=== PATIENT | female | born 1950 | race Caucasian/White ===

== ENCOUNTER 2017-07-22 09:27 | Day surgery (SDC) | payer BC, MEDICARE ==
[~2017-07-22 09:27] MED LIST: Lactated Ringers 1,000 ML IV SCH; Midazolam 1 MG/ML 2 ML SDV ONE; Propofol 200 MG/20 ML SDV ONE; fentaNYL 100 MCG/2 ML SDV ONE
--- NOTE | 2017-07-22 10:08 | PCM.PREANE ---
Preanesthetic Assessment - Anesthesia/Transfusion/Family Hx Anesthesia History: Prior Anesthesia Without Reaction Other Type of Anesthesia Reaction Comment: REports with majory surgeries, slow to awaken Family History of Anesthesia Reaction: No Transfusion History: No Prior Transfusion(s) Intubation History: Unknown - Review of Systems General: No Symptoms Pulmonary: No Symptoms Cardiovascular: No Symptoms Gastrointestinal: Abdominal Pain, Diarrhea Neurological: No Symptoms Other: Reports: None - Physical Assessment O2 Sat by Pulse Oximetry: 96 Respiratory Rate: 16 Vital Signs: Last Vital Signs Temp 36.2 C 07/22/17 10:01 Pulse 89 07/22/17 10:01 Resp 16 07/22/17 10:01 BP 116/73 07/22/17 10:01 Pulse Ox 96 07/22/17 10:01 Height: 1.6 m Weight: 80.739 kg ASA Class: 2 Mental Status: Alert & Oriented x3 Airway Class: Mallampati = 2 Dentition: Reports: Normal Dentition, Partial (upper) Thyro-Mental Finger Breadths: 3 Mouth Opening Finger Breadths: 3 ROM/Head Extension: Full Lungs: Clear to Auscultation, Normal Respiratory Effort Cardiovascular: Regular Rate, Regular Rhythm - Allergies Allergies/Adverse Reactions: Allergies Allergy/AdvReac Type Severity Reaction Status Date / Time Penicillins Allergy Rash Verified 08/27/15 17:05 - Blood Blood Available: No - Anesthesia Plan Pre-Op Medication Ordered: None - Acknowledgements Anesthesia Type Planned: MAC Pt an Appropriate Candidate for the Planned Anesthesia: Yes Alternatives and Risks of Anesthesia Discussed w Pt/Guardian: Yes Pt/Guardian Understands and Agrees with Anesthesia Plan: Yes PreAnesthesia Questionnaire - Past Health History Medical/Surgical History: Denies Medical/Surgical History HEENT History: Reports: Other (See Below) Other HEENT History: wears glasses, top partial Cardiovascular History: Reports: High Cholesterol, Hypertension Respiratory History: Reports: Other (See Below) Other Respiratory History: 35 yr history of smoking Gastrointestinal History: Reports: Colon Polyp Genitourinary History: Reports: Renal Calculus AS400 CONSULTANT History: Reports: Musculoskeletal History: Reports: Fracture Other Musculoskeletal History: hx: fracturing Right Wrist Neurological History: Reports: None Psychiatric History: Reports: None Endocrine/Metabolic History: Reports: Diabetes, Type II (glucose 192 preop, last A1C 6.9), Obesity/BMI 30+, Other (See Below) (unintentional weight loss) Hematologic History: Reports: None Immunologic History: Reports: None Oncologic (Cancer) History: Reports: None Dermatologic History: Reports: None - Past Surgical History Head Surgeries/Procedures: Reports: None HEENT Surgical History: Reports: Tonsillectomy GI Surgical History: Reports: Cholecystectomy, Colonoscopy ('16 with polyp) Female Surgical History: Reports: Hysterectomy, Tubal Ligation Neurological Surgical History: Reports: Other (See Below) Musculoskeletal Surgical History: Reports: Carpal Tunnel - SUBSTANCE USE Smoking Status *Q: Former Smoker (quit 01/05) Tobacco Use Within Last Twelve Months: Cigarettes Other Tobacco Use Within Last Twelve Months: 30 yr history smoking, current use 2 pack/week Recreational Drug Use History: No - HOME MEDS Home Medications: Home Meds Aspirin [Ecotrin] 1 tab PO DAILY 08/27/15 [History] Cyanocobalamin/FA/Pyridoxine [Folic Acid-Vit B6-Vit B12] 1 tab PO DAILY [History] Ezetimibe [Zetia] 1 tab PO DAILY 08/27/15 [History] Fish Oil/[place]-3 Fatty Acids [Fish Oil 1,000 MG] 1 cap PO DAILY 08/27/15 [ History] Glimepiride 0.5 tab PO BEDTIME 08/27/15 [History] Multivitamin [Multi-Vitamin Daily] 1 tab PO DAILY 08/27/15 [History] Ramipril 1 cap PO DAILY 08/27/15 [History] metFORMIN HCl [Metformin HCl] 2 tab PO BIDMEALS 08/27/15 [History] Chlorthalidone 0.5 tab PO DAILY 07/20/17 [History] - CURRENT (IN HOUSE) MEDS Current Meds: Current Medications Lactated Ringer's (Ringers, Lactated) 1,000 mls @ 125 mls/hr IV ASDIRECTED [place] Last Admin: 07/22/17 10:00 Dose: 125 mls/hr Discontinued Medications Fentanyl (Sublimaze) Confirm Administered Dose 100 mcg .ROUTE .STK-MED ONE Stop: 07/22/17 07:08 Lidocaine HCl (Xylocaine-Mpf 1%) Confirm Administered Dose 5 ml .ROUTE .STK-MED ONE Stop: 07/22/17 07:09 Midazolam HCl (Versed 1 Mg/Ml) Confirm Administered Dose 2 mg .ROUTE .STK-MED ONE Stop: 07/22/17 07:08 Propofol (Diprivan 20 Ml) Confirm Administered Dose 200 mg .ROUTE .STK-MED ONE Stop: 07/22/17 07:08
[2017-07-22] MEDS ORDERED: Propofol 200 MG/20 ML SDV ONE (10:58)
[2017-07-22] MEDS ORDERED: Lactated Ringers 1,000 ML IV SCH (11:30)
--- NOTE | 2017-07-22 11:34 | PCM.OPNOTE ---
- General Post-Op/Procedure Note Operative Procedure(s): Patient was taken to the endoscopy room and positioned on the endoscopy table in the supine position. Timeout was called for appropriate identification of patient and procedure. Monitored anesthesia care was provided. The bite block was placed between the patient's teeth. The gastroscope was inserted through the bite block into the mouth and advanced without difficulty through the esophagus and stomach into the duodenum where examination was carried out in a retrograde fashion. The duodenum shows no acute inflammatory changes or ulcerations. The distal stomach shows a significant gastritis. Antral biopsies were obtained to look for the presence of Helicobacter pylori. The gastroscope was retroflexed to visualize proximal stomach. No lesions were identified. No ulcerations were noted. The gastroscope was straightened and slowly withdrawn carefully visualizing the greater and lesser curvatures. Again, no ulcerations were noted. The GE junction is well-defined and shows no acute inflammatory changes. The esophagus demonstrates goodcontractility. No mid or proximal esophageal lesions were identified. The vocal cords were visualized and noted to move symmetrically. No vocal cord lesions were identified. The gastroscope was removed with the patient having tolerated this portion of the procedure well. The patient was now positioned in the left lateral decubitus position. The colonoscope was inserted into the rectum and advanced with minimal difficulty to the cecum. The cecum was identified by internal landmarks and external pressure. The colonoscope was retroflexed in the cecum to visualize the ascending colon from below then straightened and slowly withdrawn. The cecum, ascending colon, hepatic flexure, transverse colon, splenic flexure, descending colon, sigmoid colon and rectum were very well visualized. No tumors polyp, diverticuli, or angiodysplastic changes are identified. Once the colonoscope was withdrawn to the rectum it was retroflexed to visualize the anal orifice from above. Again, no tumors or polyps were seen. There are no acute hemorrhoidal changes. The patient tolerated both procedures well, was taken to recovery room in stable condition. Pre Op Diagnosis: Epigastric pain. Early satiety. Change in bowel habits. Personal history of colon polyps. Post-Op Diagnosis: Acute gastritis. No evidence of colonic neoplasia. Anesthesia Technique: MAC (ASA II) Primary Surgeon: Joshua Brown Condition: Good Free Text/Narrative:: CPT CODE 04947/42050
[2017-07-22 14:14] VITALS: BP 120/68
== END 2017-07-22 12:35 | disposition home or self-care (01) ==
LOC: MW.SDS 09:27
PROVIDERS: ATTEND Surgery
DX: Z12.11 Encounter for screening for malignant neoplasm of colon (principal); K29.50 Unspecified chronic gastritis without bleeding; K29.00 Acute gastritis without bleeding; E11.9 Type 2 diabetes mellitus without complications; Z86.010 Personal history of colon polyps; Z88.0 Allergy status to penicillin; Z79.82 Long term (current) use of aspirin; Z79.84 Long term (current) use of oral hypoglycemic drugs; Z79.899 Other long term (current) drug therapy; Z98.84 Bariatric surgery status; Z90.710 Acquired absence of both cervix and uterus; Z98.51 Tubal ligation status; F17.210 Nicotine dependence, cigarettes, uncomplicated
CPT/HCPCS: 43239; 45378; 88305; 88312; J2250; J3010; J7120; J2704

== ENCOUNTER 2021-05-05 08:13 | Day surgery (SDC) | payer MEDICARE, OTHER ==
[~2021-05-05 08:13] MED LIST changes: -Midazolam 1 MG/ML 2 ML SDV ONE; -Propofol 200 MG/20 ML SDV ONE; +Sodium Chloride 0.9% 10 ML SDV IV PRN; +Sodium Chloride 0.9% 10 ML Syringe FLUSH PRN; +Sodium Chloride 0.9% 2.5 ML Syringe FLUSH PRN; -fentaNYL 100 MCG/2 ML SDV ONE
--- NOTE | 2021-05-05 09:03 | PCM.PREANE ---
Preanesthetic Assessment - Procedure Proposed Procedure: Colonoscopy - Anesthesia/Transfusion/Family Hx Anesthesia History: Prior Anesthesia Reaction Other Type of Anesthesia Reaction Comment: REports with majory surgeries, slow to awaken Transfusion History: No Prior Transfusion(s) Intubation History: Unknown - Review of Systems General: No Symptoms Pulmonary: No Symptoms (Quit smoking x 5 years, COPD uses inhaler bid) Cardiovascular: No Symptoms (HLD) Gastrointestinal: No Symptoms (H/o Colon polyps) Neurological: No Symptoms Other: Reports: None (h/o kidney stones) - Physical Assessment NPO Status Date: 05/03/21 NPO Status Time: 18:45 (solids. liquids >8hrs) Vital Signs: Last Vital Signs Temp 96.6 F L 05/05/21 08:32 Pulse 104 H 05/05/21 08:32 Resp 16 05/05/21 08:32 BP 119/67 05/05/21 08:32 Pulse Ox 95 05/05/21 08:32 Height: 5 ft 2 in Weight: 92.533 kg (obesity) ASA Class: 3 Mental Status: Alert & Oriented x3 Airway Class: Mallampati = 2 Dentition: Reports: Partial (upper) Thyro-Mental Finger Breadths: 3 Mouth Opening Finger Breadths: 3 ROM/Head Extension: Full Lungs: Clear to Auscultation, Normal Respiratory Effort Cardiovascular: Regular Rate, Regular Rhythm - Lab Values: Laboratory Last Values POC Glucose 164 mg/dL (70-99) H 05/05/21 08:23 - Allergies Allergies/Adverse Reactions: Allergies Allergy/AdvReac Type Severity Reaction Status Date / Time Penicillins Allergy Hives Verified 04/29/21 15:01 - Acknowledgements Anesthesia Type Planned: General Anesthesia Pt an Appropriate Candidate for the Planned Anesthesia: Yes Alternatives and Risks of Anesthesia Discussed w Pt/Guardian: Yes Pt/Guardian Understands and Agrees with Anesthesia Plan: Yes PreAnesthesia Questionnaire - Past Health History Medical/Surgical History: Denies Medical/Surgical History HEENT History: Reports: Hard of Hearing, Other (See Below) Other HEENT History: wears glasses, has upper removable partial denture, is hard of hearing Cardiovascular History: Reports: High Cholesterol Respiratory History: Reports: COPD Other Respiratory History: uses Symbicort daily Gastrointestinal History: Reports: Colon Polyp, Helicobacter Pylori Genitourinary History: Reports: Renal Calculus 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: Musculoskeletal History: Reports: Arthritis, Fracture Other Musculoskeletal History: hx of right wrist fx Neurological History: Reports: None Psychiatric History: Reports: None Endocrine/Metabolic History: Reports: Diabetes, Type II, IDDM, Obesity/BMI 30+ Hematologic History: Reports: None Immunologic History: Reports: None Oncologic (Cancer) History: Reports: Cervix Other Oncologic History: malignant cells found on cervix from Hysterectomy Dermatologic History: Reports: Eczema - Infectious Disease History Infectious Disease History: Reports: Chicken Pox, Measles, Mumps - Past Surgical History Head Surgeries/Procedures: Reports: None HEENT Surgical History: Reports: None Cardiovascular Surgical History: Reports: None Respiratory Surgical History: Reports: None GI Surgical History: Reports: Cholecystectomy, Colonoscopy Female Surgical History: Reports: Hysterectomy, Lithotripsy/ESWL, Tubal Ligation Endocrine Surgical History: Reports: None Neurological Surgical History: Reports: None Musculoskeletal Surgical History: Reports: None Oncologic Surgical History: Reports: None - SUBSTANCE USE Tobacco Use Status *Q: Former Tobacco User Tobacco Use Within Last Twelve Months: No Recreational Drug Use History: No - HOME MEDS Home Medications: Home Meds Fish Oil/[place]-3 Fatty Acids [Fish Oil 1,000 MG] 1,000 mg PO DAILY 08/27/15 [History] Multivitamin [Multi-Vitamin Daily] 1 tab PO DAILY 08/27/15 [History] Ramipril 10 mg PO QAM 08/27/15 [History] Allopurinol [Zyloprim] 300 mg PO DAILY 04/29/21 [History] Budesonide/Formoterol Fumarate [Symbicort 80-4.5 MCG] 2 puff INH BID 04/29/21 [History] Calcium Carbonate [Calcium] 500 mg PO BID 04/29/21 [History] Cholecalciferol (Vitamin D3) [Vitamin D3] 50 mcg PO DAILY 04/29/21 [History] Folic Acid 5 mg PO DAILY 04/29/21 [History] Insulin Aspart [Novolog Flexpen] 10 unit SQ TIDMEALS 04/29/21 [History] Insulin Detemir [Levemir] 40 unit SQ BID 04/29/21 [History] Iron 50 mg PO TID 04/29/21 [History] Lactobacillus Acidophilus [Acidophilus] 100 mg PO DAILY 04/29/21 [History] Meloxicam 7.5 mg PO DAILY 04/29/21 [History] Mometasone Furoate [Nasonex [place]] 1 spray NASBOTH BID PRN 04/29/21 [History] Pioglitazone HCl 45 mg PO QAM 04/29/21 [History] Semaglutide [Ozempic] 1 dose SQ WEEKLY 04/29/21 [History] - CURRENT (IN HOUSE) MEDS Current Meds: Current Medications Lactated Ringer's (Ringers, Lactated) 1,000 mls @ 125 mls/hr IV ASDIRECTED [place] Last Admin: 05/05/21 08:36 Dose: 125 mls/hr Documented by: Sodium Chloride (Sodium Chloride 0.9% 10 Ml Syringe) 10 ml FLUSH ASDIRECTED PRN PRN Reason: Keep Vein Open Sodium Chloride (Sodium Chloride 0.9% 2.5 Ml Syringe) 2.5 ml FLUSH ASDIRECTED PRN PRN Reason: Keep Vein Open Sodium Chloride (Sodium Chloride 0.9% 10 Ml Syringe) 10 ml FLUSH ASDIRECTED PRN PRN Reason: Keep Vein Open Sodium Chloride (Sodium Chloride 0.9% 2.5 Ml Syringe) 2.5 ml FLUSH ASDIRECTED PRN PRN Reason: Keep Vein Open Sodium Chloride (Sodium Chloride 0.9% 10 Ml Sdv) 10 ml IV ASDIRECTED PRN PRN Reason: IV Use
[2021-05-05] MEDS ORDERED: Propofol 200 MG/20 ML SDV ONE ×2 (09:42→11:03)
[2021-05-05] MEDS ORDERED: fentaNYL 100 MCG/2 ML SDV ONE ×2 (09:42→11:03)
[2021-05-05] MEDS ORDERED: Glycopyrrolate 0.2 MG/ML SDV ONE (09:44)
--- NOTE | 2021-05-05 10:53 | PCM.OPNOTE ---
- General Post-Op/Procedure Note Date of Surgery/Procedure: 05/05/21 Operative Procedure(s): Screening colonoscopy with polypectomy and biopsy Findings: Rectal lesions (reddened area possible inflammation). Cecal polyp x 2. Diverticulosis. Pre Op Diagnosis: History of colon polyp Post-Op Diagnosis: Cecal polyp x2, diverticulosis, rectal lesion Anesthesia Technique: [facility] [place] Primary Surgeon: Zarina Valentine Condition: Good
--- NOTE | 2021-05-05 10:56 | PCM.POSTAN ---
POST ANESTHESIA ASSESSMENT - MENTAL STATUS Mental Status: Alert, Oriented - VITAL SIGNS Vital Signs: Last Vital Signs Temp 97.7 F 05/05/21 10:46 Pulse 82 05/05/21 10:52 Resp 14 05/05/21 10:52 BP 109/62 05/05/21 10:52 Pulse Ox 99 05/05/21 10:52 - RESPIRATORY Respiratory Status: Respiratory Rate WNL, Airway Patent, O2 Saturation Stable - CARDIOVASCULAR CV Status: Pulse Rate WNL, Blood Pressure Stable - GASTROINTESTINAL GI Status: No Symptoms - PAIN Pain Score: 0 - POST OP HYDRATION Hydration Status: Adequate & Stable
[2021-05-05] MEDS ORDERED: Midazolam 1 MG/ML 2 ML SDV ONE (11:03)
[2021-05-05 11:17] VITALS: BP 127/64; PULSE 85
--- NOTE | 2021-05-05 13:21 | PCM48HPAN ---
Post Anesthesia Note - EVALUATION WITHIN 48HRS OF ANESTHETIC Vital Signs in Normal Range: Yes Patient Participated in Evaluation: Yes Respiratory Function Stable: Yes Airway Patent: Yes Cardiovascular Function Stable: Yes Hydration Status Stable: Yes Pain Control Satisfactory: Yes Nausea and Vomiting Control Satisfactory: Yes Mental Status Recovered: Yes Vital Signs: Last Vital Signs Temp 97.3 F 05/05/21 11:05 Pulse 85 05/05/21 11:05 Resp 14 05/05/21 11:05 BP 127/64 05/05/21 11:05 Pulse Ox 98 05/05/21 11:05 - COMMENTS/OBSERVATIONS Free Text/Narrative:: Pt doing well post-op. VSS. No apparent anesthetic complications. Dr. David Hernandez
--- NOTE | 2021-05-05 17:43 | OR ---
SURGEON: ZARINA VALENTINE MD DATE OF PROCEDURE: 05/05/2021 PREOPERATIVE DIAGNOSIS: History of colon polyps. POSTOPERATIVE DIAGNOSES: 1. Cecal polyp x2. 2. Diverticulosis. 3. Rectal lesion. PROCEDURE PERFORMED: Screening colonoscopy with polypectomy and biopsy. PRIMARY SURGEON: Zarina Valentine MD ANESTHESIA: MAC. INSTRUMENT USED: Olympus colonoscope. EXTENT OF EXAM: To the cecum. PREPARATION: Good. LIMITATIONS: None. INDICATIONS FOR EXAMINATION: The patient is a 70-year-old female who is due for repeat colonoscopy. She was found to have colon polyps in the past. I explained the procedure, expected perioperative course, and the risks. The patient verbalized understanding and wishes to proceed. PROCEDURE IN DETAIL: The patient was brought to the endoscopy suite and placed in the left lateral decubitus position. A time-out was completed verifying the patient's name, age, date of , allergies, and procedure to be performed. Monitored anesthesia care was induced and continuous oxygen was provided via face mask throughout the procedure. After adequate sedation was achieved, a digital rectal exam was performed. This exam was within normal limits. A well-lubricated colonoscope was inserted into the rectum and advanced under direct visualization to the level of the cecum. The cecum was identified by both visual and anatomic landmarks. A photograph was taken of the cecal cap; however, I was unable to retroflex the scope within the cecum due to redundancy and looping of the colon more proximally. The scope was fully withdrawn while examining the color, texture, anatomy, and integrity of mucosa from the cecum to the anal canal. In the cecal cap proximal to the appendiceal orifice, there were 2 small polyps noted. These were removed in piecemeal fashion using cold biopsy forceps. They were sent to pathology labeled as cecal polyp #1 and 2. In the distal sigmoid colon, the patient was noted to have some scattered diverticula. When the scope was brought into the rectum, I noticed that there was some redness along the first fold of the rectum. There was no evidence of ulceration. A biopsy of this area of redness was taken and sent to Pathology labeled as rectal biopsy. The scope was then retroflexed. The patient's hemorrhoidal tissue did appear irritated, which was likely due to her colonoscopy prep. A photograph of this was taken. The scope was then straightened out and fully withdrawn. The cecum to anus time was 23 minutes. The patient tolerated the procedure well and was transferred to the PACU in stable condition. ENDOSCOPIC DIAGNOSES: 1. Cecal polyp x2. 2. Diverticulosis. 3. Rectal lesion. RECOMMENDATIONS: Follow up in clinic in 2 weeks. MELA REGALADO /[id number]
== END 2021-05-05 11:33 | disposition home or self-care (01) ==
LOC: MW.SDS 08:13
PROVIDERS: ATTEND Surgery
DX: Z12.11 Encounter for screening for malignant neoplasm of colon (principal); K57.30 Diverticulosis of large intestine without perforation or abscess without bleeding; K63.5 Polyp of colon; K62.89 Other specified diseases of anus and rectum; E11.9 Type 2 diabetes mellitus without complications; E78.00 Pure hypercholesterolemia, unspecified; J44.9 Chronic obstructive pulmonary disease, unspecified; E66.9 Obesity, unspecified; Z68.37 Body mass index [BMI] 37.0-37.9, adult; Z88.0 Allergy status to penicillin; Z79.899 Other long term (current) drug therapy; Z79.4 Long term (current) use of insulin; Z98.890 Other specified postprocedural states
CPT/HCPCS: 45380; 82947; 88305; J2370; J2704; J3010; J3490; J7120; 00812; J2250

== ENCOUNTER 2025-07-19 12:19 | Emergency (ER) | payer MEDICARE, OTHER ==
[2025-07-19 14:30] VITALS: BP 131/73; PULSE 94
== END 2025-07-19 14:33 | disposition home or self-care (01) ==
LOC: MW.ED 12:19
DX: J06.9 Acute upper respiratory infection, unspecified (principal); H66.92 Otitis media, unspecified, left ear; E78.00 Pure hypercholesterolemia, unspecified; J44.9 Chronic obstructive pulmonary disease, unspecified; E11.9 Type 2 diabetes mellitus without complications; Z90.49 Acquired absence of other specified parts of digestive tract; Z90.710 Acquired absence of both cervix and uterus; Z88.0 Allergy status to penicillin; Z79.4 Long term (current) use of insulin; Z79.899 Other long term (current) drug therapy; Z75.3 Unavailability and inaccessibility of health-care facilities
CPT/HCPCS: 71045; 71045-26; 87428-QW; 87651; 99284